=== PATIENT | male | born 1975 | race African-American/Black ===

== ENCOUNTER 2019-11-22 12:09 | Observation (INO) ==
[2019-11-22] MEDS ORDERED: LABETALOL 20 MG/4 ML SYRINGE IV STA ×2 (12:52→13:35)
[2019-11-22 13:04] LABS: Basophils # 0.1 10*3/uL (0.0-0.2); Eosinophils # 0.2 10*3/uL (0.0-0.87); Eosinophils % 2.9 % (0.00-10.9); Hematocrit 49.8 VOL% (42.0-52.0); Hemoglobin 17.1 GM/DL (14.0-18.0); Immature Granulocytes % 0.3 %; Immature Granulocytes Absolute 0.02 #; Lymphocytes # 1.9 10*3/uL (1.4-4.0); Lymphocytes % 29.9 % (21.2-54.2); Mean Corpuscular HGB Conc 34.3 GM/DL (32-36); Mean Corpuscular Volume 88.6 FL (87-102); Mean Platelet Volume 12.3 FL (9.6-12.0); Monocytes % 8.3 % (1.7-12.7); Neutrophils % 57.6 % (38.7-73.9); Platelet Count 221 T/CUMM (130-400); Red Blood Count 5.62 MC/CUMM (3.8-5.5); Red Cell Distribution Width 12.3 % (9.3-17.3); White Blood Count 6.3 T/CUMM (4-12)
[2019-11-22 13:24] LABS: Calcium 9.6 MG/DL (8.5-10.1); Osmolality,Calculated 271.8 MOS/KG (273-304)
[2019-11-22] MEDS ORDERED: LABETALOL 100 MG/20 ML VIAL IV ONE (13:44)
[2019-11-22] MEDS ORDERED: hydrALAZINE 20 MG/1 ML VIAL IV STA (14:08)
[2019-11-22] MEDS ORDERED: ONDANSETRON 4 MG/2 ML VIAL ONE (15:18)
[2019-11-22] MEDS ORDERED: ONDANSETRON 4 MG/2 ML VIAL IV STA (15:25)
[2019-11-22] MEDS ORDERED: MORPHINE 4 MG/1 ML VIAL IV PRN (15:46)
[2019-11-22] MEDS ORDERED: ZALEPLON 5 MG CAPSULE PO PRN (15:46)
[2019-11-22] MEDS ORDERED: ONDANSETRON 4 MG/2 ML VIAL IV PRN (15:46)
[2019-11-22] MEDS ORDERED: hydrALAZINE 20 MG/1 ML VIAL IV PRN (15:46)
[2019-11-22] MEDS ORDERED: diphenhydrAMINE CAP 25 MG CAPSULE PO PRN (15:46)
[2019-11-22] MEDS ORDERED: DEXTROSE 50% 25 GM/50 ML VIAL IV PRN (15:46)
[2019-11-22] MEDS ORDERED: ALUMINUM/MAGNES/SIMETH MAX STR 30 ML UDCUP PO PRN (15:46)
[2019-11-22] MEDS ORDERED: DOCUSATE SODIUM 100 MG CAPSULE PO PRN (15:46)
[2019-11-22] MEDS ORDERED: GLUCAGON 1 MG VIAL IM PRN (15:46)
[2019-11-22] MEDS ORDERED: ENOXAPARIN 40 MG/0.4 ML SYRINGE SUBCUT SCH (16:00)
[2019-11-22] MEDS: hydroCHLOROthiazide 25 MG TABLET PO SCH (18:46)
[2019-11-22] MEDS: amLODIPine 10 MG TABLET PO SCH (21:17)
[2019-11-23 05:52] LABS: Basophils # 0.1 10*3/uL (0.0-0.2); Basophils % 0.6 % (0.0-0.8); Eosinophils # 0.2 10*3/uL (0.0-0.87); Eosinophils % 1.9 % (0.00-10.9); Hematocrit 45.4 VOL% (42.0-52.0); Hemoglobin 15.2 GM/DL (14.0-18.0); Immature Granulocytes % 0.1 %; Immature Granulocytes Absolute 0.01 #; Lymphocytes # 3.4 10*3/uL (1.4-4.0); Lymphocytes % 33.6 % (21.2-54.2); Mean Corpuscular HGB Conc 33.5 GM/DL (32-36); Mean Corpuscular Volume 90.4 FL (87-102); Monocytes % 10.8 % (1.7-12.7); Platelet Count 210 T/CUMM (130-400); Red Blood Count 5.02 MC/CUMM (3.8-5.5); Red Cell Distribution Width 12.7 % (9.3-17.3); White Blood Count 10.1 T/CUMM (4-12)
[2019-11-23 06:15] LABS: Platelet Estimate Adequate
[2019-11-23 06:26] LABS: Calcium 9.3 MG/DL (8.5-10.1); Osmolality,Calculated 270.8 MOS/KG (273-304)
[2019-11-23 07:12] LABS: Risk Ratio 7.12; Thyroid Stimulating Hormone 4.12 uIU/ml (0.358-3.74); VLDL CHOLESTEROL 30.8 MG/DL
[2019-11-23 07:26] LABS: Apearance,Urine CLEAR (Clear); Bilirubin,Urine Negative (Negative); Blood, Urine Negative (Negative); Glucose,Urine (UA) Negative (Negative); Ketones,Urine Negative (Negative); Mucus,Urine Occasional /LPF (Occasional); Nitrite,Urine Negative (Negative); Protein,Urine Negative; RBC,Urine 1 /HPF (0-4); Squamous Epithelial Cell,Urine Occasional /HPF (0-10); Urine Color Yellow (Yellow); Urine Specific Gravity 1.011 (1.001-1.035); Urine Urobilinogen < 2.0 EU/DL (0.2-1.0); WBC,Urine 1 /HPF (0-6)
[2019-11-23] MEDS ORDERED: POTASSIUM CHLORIDE 20 MEQ TABLET PO ONE (08:27)
[2019-11-23] MEDS: hydroCHLOROthiazide 25 MG TABLET PO SCH (09:00)
[2019-11-23] MEDS: amLODIPine 10 MG TABLET PO SCH (09:00)
[2019-11-23] MEDS ORDERED: PANTOPRAZOLE 40 MG TABLET PO SCH (09:00)
[2019-11-23 11:17] VITALS: BP 161/95
== END 2019-11-23 12:18 | disposition home or self-care (01) ==
LOC: N.ED 12:09 → N.EDINP 12:09 → N.3E 18:35
PROVIDERS: ADMIT Internal Medicine; ATTEND Internal Medicine